=== PATIENT | female | born 1965 | race Caucasian/White ===

== ENCOUNTER 2021-03-28 12:00 | Inpatient (IN) | payer OTHER ==
[2021-03-28] MEDS ORDERED: MAGNESIUM CITRATE 300 ML BOTTLE PO PRN (13:23)
[2021-03-28] MEDS ORDERED: NICOTINE 10 MG CARTRIDGE (INHALER) IH PRN (13:23)
[2021-03-28] MEDS ORDERED: ONDANSETRON *ODT* 4 MG TABLET SL PRN (13:23)
[2021-03-28] MEDS ORDERED: MAGNESIUM HYDROX 2400MG/30ML ORAL SUSPENSION 30 ML CUP PO PRN (13:23)
[2021-03-28] MEDS ORDERED: MAG HYDROX/AL HYDROX/SIMETH 30 ML UNIT-DOSE CUP PO PRN (13:23)
[2021-03-28] MEDS ORDERED: MENTHOL/PHENOL 1 EACH UD MM PRN (13:23)
[2021-03-28] MEDS ORDERED: IBUPROFEN 400 MG TABLET (FP) PO PRN (13:23)
[2021-03-28] MEDS ORDERED: BISMUTH SUBSALICYLATE 262 MG/15 ML BTL PO PRN (13:23)
[2021-03-28] MEDS ORDERED: ACETAMINOPHEN 325 MG TABLET (FP) PO PRN ×2 (13:23)
[2021-03-28 14:07] VITALS: BMI 27.3
[2021-03-28] MEDS ORDERED: ALBUTEROL SO4 HFA INHALER IH PRN (15:53)
[2021-03-28 17:38] LABS: HEMATOCRIT 33.5 % (32.4-45.2); HEMOGLOBIN 10.9 GM/dL (10.7-15.3); MCHC 32.4 g/dl (32.0-36.0); MEAN PLT VOLUME 8.7 fl (7.5-11.1); PLATELET COUNT 346 10^3/uL (134-434); RBC 5.59 M/mm3 (3.60-5.2); RDW 15.8 % (11.6-15.6); WHITE BLOOD COUNT 8.2 K/mm3 (4.0-10.0)
[2021-03-28 17:40] LABS: MCH 19.5 pg (25.7-33.7)
[2021-03-28] MEDS: diazePAM 5 MG TABLET PO SCH ×2 (17:56→23:08)
[2021-03-28] MEDS: hydrOXYzine PAMOATE 25 MG CAPSULE (FP) PO SCH ×3 (17:56→23:10)
[2021-03-28 17:59] LABS: CHLORIDE 112 mmol/L (98-107); SODIUM 144 mmol/L (136-145)
[2021-03-28] MEDS: NICOTINE 14 MG/24 HOURS TOPICAL PATCH TD SCH (18:03)
[2021-03-28 18:04] LABS: ALBUMIN 3.4 g/dl (3.4-5.0)
[2021-03-28 18:05] LABS: ANION GAP 3 MMOL/L (8-16); BLOOD UREA NITROGEN 7.6 mg/dL (7-18); CALCIUM 8.1 mg/dL (8.5-10.1); CO2 29 mmol/L (21-32)
[2021-03-28 18:07] LABS: SGOT/AST 16 U/L (15-37); SGPT/ALT 17 U/L (13-61)
[2021-03-28 18:08] LABS: CREATININE 0.8 mg/dL (0.55-1.3)
[2021-03-28 18:09] LABS: BILIRUBIN,TOTAL 0.3 mg/dL (0.2-1); TOT PROT 6.5 g/dl (6.4-8.2)
[2021-03-28 18:10] LABS: ALK PHOS 101 U/L (45-117)
[2021-03-28] MEDS: PRENATAL VITAMINS W/ FOLIC ACID TABLET (FP) PO SCH (18:17)
[2021-03-28 18:48] LABS: GLUCOSE,RANDOM 42 mg/dL (74-106)
[2021-03-28] MEDS: BUDESONIDE/FORMETEROL FUMARATE 160/4.5 mcg INHALER IH SCH (23:08)
[2021-03-28] MEDS: MELATONIN 5 MG TABLETS PO SCH (23:08)
[2021-03-28] MEDS: THIAMINE HCL 100 MG TABLET (FP) PO SCH (23:09)
[2021-03-28] MEDS: METHOCARBAMOL 500 MG TABLET PO PRN (23:10)
[2021-03-29] MEDS: hydrOXYzine PAMOATE 25 MG CAPSULE (FP) PO SCH (06:16)
[2021-03-29] MEDS: diazePAM 5 MG TABLET PO SCH ×4 (06:17→22:50)
[2021-03-29] MEDS: PRENATAL VITAMINS W/ FOLIC ACID TABLET (FP) PO SCH (10:29)
[2021-03-29] MEDS: BUDESONIDE/FORMETEROL FUMARATE 160/4.5 mcg INHALER IH SCH ×2 (10:29→22:49)
[2021-03-29] MEDS: DULoxetine HCL 60 MG CAPSULE.DR PO SCH (11:20)
[2021-03-29] MEDS: NICOTINE 14 MG/24 HOURS TOPICAL PATCH TD SCH (11:21)
[2021-03-29] MEDS: METHOCARBAMOL 500 MG TABLET PO PRN (22:50)
[2021-03-29] MEDS: hydrOXYzine PAMOATE 25 MG CAPSULE (FP) PO PRN (22:50)
[2021-03-29] MEDS: THIAMINE HCL 100 MG TABLET (FP) PO SCH (22:50)
[2021-03-29] MEDS: MELATONIN 5 MG TABLETS PO SCH (22:59)
[2021-03-29] MEDS: traZODone HCL 50 MG TABLET (FP) PO SCH (23:03)
[2021-03-30] MEDS: diazePAM 5 MG TABLET PO SCH ×3 (06:48→22:25)
[2021-03-30] MEDS: PRENATAL VITAMINS W/ FOLIC ACID TABLET (FP) PO SCH (10:32)
[2021-03-30] MEDS: BUDESONIDE/FORMETEROL FUMARATE 160/4.5 mcg INHALER IH SCH ×2 (10:33→22:26)
[2021-03-30] MEDS: DULoxetine HCL 60 MG CAPSULE.DR PO SCH (10:33)
[2021-03-30] MEDS: diazePAM 5 MG TABLET PO PRN (10:34)
[2021-03-30] MEDS: NICOTINE 14 MG/24 HOURS TOPICAL PATCH TD SCH (10:42)
[2021-03-30] MEDS: BUPROPION HCL 200 MG PO SCH ×2 (16:21→16:22)
[2021-03-30] MEDS: PATIENT'S OWN MEDICATION (NON-FORMULARY) (Vortioxetine Hydrobromide [Trintellix] 20 MG Tab PO SCH ×2 (16:21→16:22)
[2021-03-30] MEDS: THIAMINE HCL 100 MG TABLET (FP) PO SCH (22:24)
[2021-03-30] MEDS: traZODone HCL 50 MG TABLET (FP) PO SCH (22:24)
[2021-03-30] MEDS: MELATONIN 5 MG TABLETS PO SCH (22:24)
[2021-03-31] MEDS: diazePAM 5 MG TABLET PO SCH ×2 (06:18→17:13)
[2021-03-31] MEDS: DULoxetine HCL 60 MG CAPSULE.DR PO SCH (10:33)
[2021-03-31] MEDS: PRENATAL VITAMINS W/ FOLIC ACID TABLET (FP) PO SCH (10:34)
[2021-03-31] MEDS: hydrOXYzine PAMOATE 25 MG CAPSULE (FP) PO PRN (10:34)
[2021-03-31] MEDS: diazePAM 5 MG TABLET PO PRN (10:34)
[2021-03-31] MEDS: NICOTINE 14 MG/24 HOURS TOPICAL PATCH TD SCH (10:59)
[2021-03-31] MEDS: BUDESONIDE/FORMETEROL FUMARATE 160/4.5 mcg INHALER IH SCH (11:00)
[2021-03-31 20:56] VITALS: BP 160/99; PULSE 88; TEMP 96.9
[2021-04-01] MEDS ORDERED: diazePAM 5 MG TABLET PO ONE (06:00)
== END 2021-03-31 20:54 | disposition left against medical advice (07) | DRG 894 ==
LOC: YASAS 12:00 → Y3N 13:57
PROVIDERS: ADMIT Allergy & Immunology; ATTEND Allergy & Immunology
PROC: HZ2ZZZZ Detoxification Services for Substance Abuse Treatment (ICD-10-PCS; principal; 2021-03-28)
DX: F10.230 Alcohol dependence with withdrawal, uncomplicated (principal); F11.20 Opioid dependence, uncomplicated; F14.20 Cocaine dependence, uncomplicated; F19.282 Other psychoactive substance dependence with psychoactive substance-induced sleep disorder; F17.210 Nicotine dependence, cigarettes, uncomplicated; F19.24 Other psychoactive substance dependence with psychoactive substance-induced mood disorder; F32.A Depression, unspecified; F32.9 Major depressive disorder, single episode, unspecified; J43.9 Emphysema, unspecified; Z91.51 Personal history of suicidal behavior
CPT/HCPCS: 36415; 80053; 82947; 82962; 85027; 86780; 93005; 93010; C9803; U0003; U0005

== ENCOUNTER 2021-08-12 12:54 | Inpatient (IN) | payer OTHER ==
[2021-08-12] MEDS ORDERED: MAGNESIUM HYDROX 2400MG/30ML ORAL SUSPENSION 30 ML CUP PO PRN (13:32)
[2021-08-12] MEDS ORDERED: MAGNESIUM CITRATE 300 ML BOTTLE PO PRN (13:32)
[2021-08-12] MEDS ORDERED: LORazepam 1 MG TABLET PO PRN (13:32)
[2021-08-12] MEDS ORDERED: IBUPROFEN 400 MG TABLET (FP) PO PRN (13:32)
[2021-08-12] MEDS ORDERED: MENTHOL/PHENOL 1 EACH UD MM PRN (13:32)
[2021-08-12] MEDS ORDERED: ONDANSETRON *ODT* 4 MG TABLET SL PRN (13:32)
[2021-08-12] MEDS ORDERED: ACETAMINOPHEN 325 MG TABLET (FP) PO PRN ×2 (13:32)
[2021-08-12] MEDS ORDERED: BISMUTH SUBSALICYLATE 262 MG/15 ML BTL PO PRN (13:32)
[2021-08-12] MEDS ORDERED: LOPERAMIDE HCL 2 MG CAPSULE PO PRN (13:32)
[2021-08-12] MEDS ORDERED: NICOTINE 10 MG CARTRIDGE (INHALER) IH PRN (13:32)
[2021-08-12] MEDS ORDERED: MAG HYDROX/AL HYDROX/SIMETH 30 ML UNIT-DOSE CUP PO PRN (13:32)
[2021-08-12] MEDS ORDERED: ALBUTEROL SO4 HFA INHALER IH PRN (13:41)
[2021-08-12 15:14] VITALS: BMI 22.8
[2021-08-12] MEDS ORDERED: LORazepam 1 MG TABLET ONE (15:58)
[2021-08-12] MEDS: hydrOXYzine PAMOATE 25 MG CAPSULE (FP) PO SCH ×3 (16:13→22:28)
[2021-08-12] MEDS: PRENATAL VITAMINS W/ FOLIC ACID TABLET (FP) PO SCH (16:42)
[2021-08-12] MEDS: METHOCARBAMOL 500 MG TABLET PO PRN ×2 (16:42→22:27)
[2021-08-12] MEDS: NICOTINE 21 MG/24 HOURS TOPICAL PATCH TD SCH (16:43)
[2021-08-12 17:57] LABS: HEMATOCRIT 35.6 % (32.4-45.2); HEMOGLOBIN 11.5 GM/dL (10.7-15.3); MCHC 32.3 g/dl (32.0-36.0); MEAN CELL VOLUME 61.3 fl (80-96); MEAN PLT VOLUME 7.8 fl (7.5-11.1); PLATELET COUNT 371 10^3/uL (134-434); RBC 5.81 M/mm3 (3.60-5.2); RDW 16.4 % (11.6-15.6); WHITE BLOOD COUNT 8.4 K/mm3 (4.0-10.0)
[2021-08-12 18:01] LABS: MCH 19.8 pg (25.7-33.7)
[2021-08-12 18:09] LABS: ALBUMIN 3.6 g/dl (3.4-5.0); CALCIUM 8.9 mg/dL (8.5-10.1)
[2021-08-12 18:13] LABS: CREATININE 0.6 mg/dL (0.55-1.3)
[2021-08-12 18:14] LABS: BILIRUBIN,TOTAL 0.8 mg/dL (0.2-1)
[2021-08-12 18:15] LABS: TOT PROT 6.7 g/dl (6.4-8.2)
[2021-08-12] MEDS: LORazepam 2 MG TABLET PO SCH ×2 (18:22→22:27)
[2021-08-12] MEDS: MELATONIN 5 MG TABLETS PO SCH (22:27)
[2021-08-12] MEDS: THIAMINE HCL 100 MG TABLET (FP) PO SCH (22:27)
[2021-08-13] MEDS: hydrOXYzine PAMOATE 25 MG CAPSULE (FP) PO SCH ×5 (05:40→22:54)
[2021-08-13] MEDS: LORazepam 2 MG TABLET PO SCH ×4 (05:40→22:55)
[2021-08-13] MEDS: PRENATAL VITAMINS W/ FOLIC ACID TABLET (FP) PO SCH (10:34)
[2021-08-13] MEDS: METHOCARBAMOL 500 MG TABLET PO PRN ×2 (10:34→18:27)
[2021-08-13] MEDS: NICOTINE 21 MG/24 HOURS TOPICAL PATCH TD SCH (10:35)
[2021-08-13] MEDS: MELATONIN 5 MG TABLETS PO SCH (22:54)
[2021-08-13] MEDS: THIAMINE HCL 100 MG TABLET (FP) PO SCH (22:54)
[2021-08-14] MEDS: hydrOXYzine PAMOATE 25 MG CAPSULE (FP) PO SCH ×5 (05:42→22:07)
[2021-08-14] MEDS: LORazepam 1 MG TABLET PO SCH ×4 (05:42→22:07)
[2021-08-14] MEDS: PRENATAL VITAMINS W/ FOLIC ACID TABLET (FP) PO SCH (10:55)
[2021-08-14] MEDS: METHOCARBAMOL 500 MG TABLET PO PRN (10:56)
[2021-08-14] MEDS: NICOTINE 21 MG/24 HOURS TOPICAL PATCH TD SCH (10:57)
[2021-08-14 14:07] LABS: SARS-CoV-2 NAA Not Detected (Not Detected)
[2021-08-14] MEDS: THIAMINE HCL 100 MG TABLET (FP) PO SCH (22:07)
[2021-08-14] MEDS: MELATONIN 5 MG TABLETS PO SCH (22:08)
[2021-08-15] MEDS ORDERED: LORazepam 0.5 MG TABLET PO PRN
[2021-08-15] MEDS: hydrOXYzine PAMOATE 25 MG CAPSULE (FP) PO SCH ×5 (04:59→22:22)
[2021-08-15] MEDS: LORazepam 0.5 MG TABLET PO SCH ×4 (05:00→22:22)
[2021-08-15] MEDS: PRENATAL VITAMINS W/ FOLIC ACID TABLET (FP) PO SCH (10:30)
[2021-08-15] MEDS: METHOCARBAMOL 500 MG TABLET PO PRN (10:30)
[2021-08-15] MEDS: NICOTINE 21 MG/24 HOURS TOPICAL PATCH TD SCH (10:31)
[2021-08-15] MEDS: DULoxetine HCL 60 MG CAPSULE.DR PO SCH (12:24)
[2021-08-15] MEDS: BUPROPION HCL 200 MG PO SCH (14:58)
[2021-08-15] MEDS: PATIENT'S OWN MEDICATION (NON-FORMULARY) (Vortioxetine Hydrobromide [Trintellix] 20 MG Tab PO SCH (14:59)
[2021-08-15] MEDS ORDERED: PATIENT'S OWN MEDICATION (NON-FORMULARY) (Trazodone Hcl [Trazodone Hcl] 150 MG Tablet) PO SCH (22:00)
[2021-08-15] MEDS: THIAMINE HCL 100 MG TABLET (FP) PO SCH (22:22)
[2021-08-16] MEDS ORDERED: LORazepam 0.5 MG TABLET PO ONE (05:00)
[2021-08-16] MEDS: hydrOXYzine PAMOATE 25 MG CAPSULE (FP) PO SCH ×2 (06:15→10:30)
[2021-08-16] MEDS: PRENATAL VITAMINS W/ FOLIC ACID TABLET (FP) PO SCH (10:29)
[2021-08-16] MEDS: PATIENT'S OWN MEDICATION (NON-FORMULARY) (Vortioxetine Hydrobromide [Trintellix] 20 MG Tab PO SCH (10:29)
[2021-08-16] MEDS: DULoxetine HCL 60 MG CAPSULE.DR PO SCH (10:30)
[2021-08-16] MEDS: METHOCARBAMOL 500 MG TABLET PO PRN (10:30)
[2021-08-16] MEDS: BUPROPION HCL 200 MG PO SCH (10:31)
[2021-08-16] MEDS: NICOTINE 21 MG/24 HOURS TOPICAL PATCH TD SCH ×2 (10:32→10:34)
[2021-08-16 12:08] VITALS: BP 108/67; PULSE 85; TEMP 98.2
== END 2021-08-16 12:32 | disposition other institution (70) | DRG 897 ==
LOC: YASAS 12:54 → Y6N 15:36
PROVIDERS: ADMIT Allergy & Immunology; ATTEND Allergy & Immunology
PROC: HZ2ZZZZ Detoxification Services for Substance Abuse Treatment (ICD-10-PCS; principal; 2021-08-12)
DX: F10.230 Alcohol dependence with withdrawal, uncomplicated (principal); F11.20 Opioid dependence, uncomplicated; F14.20 Cocaine dependence, uncomplicated; F19.282 Other psychoactive substance dependence with psychoactive substance-induced sleep disorder; F33.1 Major depressive disorder, recurrent, moderate; F17.210 Nicotine dependence, cigarettes, uncomplicated; F19.24 Other psychoactive substance dependence with psychoactive substance-induced mood disorder; F32.A Depression, unspecified; I10 Essential (primary) hypertension; J43.9 Emphysema, unspecified; R01.1 Cardiac murmur, unspecified
CPT/HCPCS: 36415; 80053; 81025; 82962; 85027; 86780; 87811; C9803; U0003; U0005

== ENCOUNTER 2021-08-16 12:41 | Inpatient (IN) | payer OTHER ==
[2021-08-16] MEDS ORDERED: P-EPHED 60MG/TRIPROLIDI 2.5MG TABLET PO PRN (14:46)
[2021-08-16] MEDS ORDERED: LOPERAMIDE HCL 2 MG CAPSULE PO PRN (14:46)
[2021-08-16] MEDS ORDERED: NICOTINE 10 MG CARTRIDGE (INHALER) IH PRN (14:46)
[2021-08-16] MEDS ORDERED: MAGNESIUM HYDROX 2400MG/30ML ORAL SUSPENSION 30 ML CUP PO PRN (14:46)
[2021-08-16] MEDS ORDERED: guaiFENesin 200 MG/10 ML 10 ML UNIT-DOSE CUPS PO PRN (14:46)
[2021-08-16] MEDS ORDERED: IBUPROFEN 400 MG TABLET (FP) PO PRN (14:46)
[2021-08-16] MEDS ORDERED: MAG HYDROX/AL HYDROX/SIMETH 30 ML UNIT-DOSE CUP PO PRN (14:46)
[2021-08-16] MEDS ORDERED: ACETAMINOPHEN 325 MG TABLET (FP) PO PRN (14:46)
[2021-08-16] MEDS ORDERED: MAGNESIUM CITRATE 300 ML BOTTLE PO PRN (14:46)
[2021-08-16] MEDS ORDERED: MENTHOL/PHENOL 1 EACH UD MM PRN (14:46)
[2021-08-16] MEDS: hydrOXYzine PAMOATE 25 MG CAPSULE (FP) PO PRN ×2 (17:14→21:36)
[2021-08-16] MEDS: MELATONIN 5 MG TABLETS PO SCH (21:34)
[2021-08-16] MEDS: TRAZODONE HCL 150 MG PO SCH (21:34)
[2021-08-16] MEDS: THIAMINE HCL 100 MG TABLET (FP) PO SCH (21:34)
[2021-08-16] MEDS ORDERED: traZODone HCL 50 MG TABLET (FP) PO SCH (22:00)
[2021-08-17] MEDS ORDERED: DULoxetine HCL 30 MG CAPSULE.DR PO ONE (08:41)
[2021-08-17] MEDS: PATIENT'S OWN MEDICATION (NON-FORMULARY) (Vortioxetine Hydrobromide [Trintellix] 20 MG Tab PO SCH (10:15)
[2021-08-17] MEDS: BUPROPION HCL 200 MG PO SCH (10:16)
[2021-08-17] MEDS: DULoxetine HCL 60 MG CAPSULE.DR PO SCH (10:16)
[2021-08-17] MEDS: PRENATAL VITAMINS W/ FOLIC ACID TABLET (FP) PO SCH (10:16)
[2021-08-17] MEDS: NICOTINE 7 MG/24 HOURS TOPICAL PATCH TD SCH (10:17)
[2021-08-17] MEDS: THIAMINE HCL 100 MG TABLET (FP) PO SCH (21:39)
[2021-08-17] MEDS: TRAZODONE HCL 150 MG PO SCH (21:39)
[2021-08-17] MEDS: MELATONIN 5 MG TABLETS PO SCH (21:39)
[2021-08-18] MEDS: NICOTINE 7 MG/24 HOURS TOPICAL PATCH TD SCH (10:08)
[2021-08-18] MEDS: PRENATAL VITAMINS W/ FOLIC ACID TABLET (FP) PO SCH (10:08)
[2021-08-18] MEDS: BUPROPION HCL 200 MG PO SCH (10:08)
[2021-08-18] MEDS: PATIENT'S OWN MEDICATION (NON-FORMULARY) (Vortioxetine Hydrobromide [Trintellix] 20 MG Tab PO SCH (10:08)
[2021-08-18] MEDS: DULoxetine HCL 60 MG CAPSULE.DR PO SCH (10:09)
[2021-08-18] MEDS: hydrOXYzine PAMOATE 25 MG CAPSULE (FP) PO PRN ×2 (10:10→21:40)
[2021-08-18] MEDS: TRAZODONE HCL 150 MG PO SCH (21:40)
[2021-08-18] MEDS: THIAMINE HCL 100 MG TABLET (FP) PO SCH (21:40)
[2021-08-18] MEDS: MELATONIN 5 MG TABLETS PO SCH (21:40)
[2021-08-19] MEDS: BUPROPION HCL 200 MG PO SCH (10:26)
[2021-08-19] MEDS: PRENATAL VITAMINS W/ FOLIC ACID TABLET (FP) PO SCH (10:26)
[2021-08-19] MEDS: DULoxetine HCL 60 MG CAPSULE.DR PO SCH (10:27)
[2021-08-19] MEDS: PATIENT'S OWN MEDICATION (NON-FORMULARY) (Vortioxetine Hydrobromide [Trintellix] 20 MG Tab PO SCH (10:27)
[2021-08-19] MEDS: hydrOXYzine PAMOATE 25 MG CAPSULE (FP) PO PRN (10:28)
[2021-08-19] MEDS: NICOTINE 7 MG/24 HOURS TOPICAL PATCH TD SCH (10:28)
[2021-08-19] MEDS: MELATONIN 5 MG TABLETS PO SCH (21:45)
[2021-08-19] MEDS: THIAMINE HCL 100 MG TABLET (FP) PO SCH (21:45)
[2021-08-19] MEDS: TRAZODONE HCL 150 MG PO SCH (21:46)
[2021-08-20] MEDS ORDERED: DULoxetine HCL 30 MG CAPSULE.DR PO ONE (08:06)
[2021-08-20] MEDS: PRENATAL VITAMINS W/ FOLIC ACID TABLET (FP) PO SCH (10:18)
[2021-08-20] MEDS: BUPROPION HCL 200 MG PO SCH (10:19)
[2021-08-20] MEDS: DULoxetine HCL 60 MG CAPSULE.DR PO SCH (10:19)
[2021-08-20] MEDS: PATIENT'S OWN MEDICATION (NON-FORMULARY) (Vortioxetine Hydrobromide [Trintellix] 20 MG Tab PO SCH (10:20)
[2021-08-20] MEDS: NICOTINE 7 MG/24 HOURS TOPICAL PATCH TD SCH (10:20)
[2021-08-20] MEDS: hydrOXYzine PAMOATE 25 MG CAPSULE (FP) PO PRN ×2 (10:21→21:51)
[2021-08-20] MEDS: MELATONIN 5 MG TABLETS PO SCH (21:50)
[2021-08-20] MEDS: THIAMINE HCL 100 MG TABLET (FP) PO SCH (21:50)
[2021-08-20] MEDS: TRAZODONE HCL 150 MG PO SCH (21:50)
[2021-08-21 08:07] LABS: SARS-CoV-2 NAA Not Detected (Not Detected)
[2021-08-21] MEDS: PATIENT'S OWN MEDICATION (NON-FORMULARY) (Vortioxetine Hydrobromide [Trintellix] 20 MG Tab PO SCH (10:23)
[2021-08-21] MEDS: PRENATAL VITAMINS W/ FOLIC ACID TABLET (FP) PO SCH (10:23)
[2021-08-21] MEDS: BUPROPION HCL 200 MG PO SCH (10:23)
[2021-08-21] MEDS: hydrOXYzine PAMOATE 25 MG CAPSULE (FP) PO PRN (10:24)
[2021-08-21] MEDS: DULoxetine HCL 60 MG CAPSULE.DR PO SCH (10:24)
[2021-08-21] MEDS: NICOTINE 7 MG/24 HOURS TOPICAL PATCH TD SCH (10:25)
[2021-08-21] MEDS: THIAMINE HCL 100 MG TABLET (FP) PO SCH (21:32)
[2021-08-21] MEDS: TRAZODONE HCL 150 MG PO SCH (21:32)
[2021-08-21] MEDS: MELATONIN 5 MG TABLETS PO SCH (21:32)
[2021-08-22] MEDS ORDERED: DULoxetine HCL 30 MG CAPSULE.DR PO ONE (08:40)
[2021-08-22] MEDS: DULoxetine HCL 60 MG CAPSULE.DR PO SCH (10:13)
[2021-08-22] MEDS: PRENATAL VITAMINS W/ FOLIC ACID TABLET (FP) PO SCH (10:13)
[2021-08-22] MEDS: BUPROPION HCL 200 MG PO SCH (10:13)
[2021-08-22] MEDS: NICOTINE 7 MG/24 HOURS TOPICAL PATCH TD SCH (10:14)
[2021-08-22] MEDS: PATIENT'S OWN MEDICATION (NON-FORMULARY) (Vortioxetine Hydrobromide [Trintellix] 20 MG Tab PO SCH (10:14)
[2021-08-22] MEDS: TRAZODONE HCL 150 MG PO SCH (21:33)
[2021-08-22] MEDS: hydrOXYzine PAMOATE 25 MG CAPSULE (FP) PO PRN (21:34)
[2021-08-22] MEDS: MELATONIN 5 MG TABLETS PO SCH (21:34)
[2021-08-22] MEDS: THIAMINE HCL 100 MG TABLET (FP) PO SCH (21:34)
[2021-08-23] MEDS: PRENATAL VITAMINS W/ FOLIC ACID TABLET (FP) PO SCH (10:33)
[2021-08-23] MEDS: PATIENT'S OWN MEDICATION (NON-FORMULARY) (Vortioxetine Hydrobromide [Trintellix] 20 MG Tab PO SCH (10:33)
[2021-08-23] MEDS: DULoxetine HCL 60 MG CAPSULE.DR PO SCH (10:34)
[2021-08-23] MEDS: hydrOXYzine PAMOATE 25 MG CAPSULE (FP) PO PRN ×2 (10:34→21:39)
[2021-08-23] MEDS: BUPROPION HCL 200 MG PO SCH (10:34)
[2021-08-23] MEDS: NICOTINE 7 MG/24 HOURS TOPICAL PATCH TD SCH (10:35)
[2021-08-23] MEDS: THIAMINE HCL 100 MG TABLET (FP) PO SCH (21:39)
[2021-08-23] MEDS: TRAZODONE HCL 150 MG PO SCH (21:39)
[2021-08-23] MEDS: MELATONIN 5 MG TABLETS PO SCH (21:40)
[2021-08-24] MEDS ORDERED: DULoxetine HCL 30 MG CAPSULE.DR PO ONE (09:11)
[2021-08-24] MEDS: BUPROPION HCL 200 MG PO SCH (10:16)
[2021-08-24] MEDS: DULoxetine HCL 60 MG CAPSULE.DR PO SCH (10:17)
[2021-08-24] MEDS: hydrOXYzine PAMOATE 25 MG CAPSULE (FP) PO PRN ×2 (10:17→21:31)
[2021-08-24] MEDS: PATIENT'S OWN MEDICATION (NON-FORMULARY) (Vortioxetine Hydrobromide [Trintellix] 20 MG Tab PO SCH (10:17)
[2021-08-24] MEDS: NICOTINE 7 MG/24 HOURS TOPICAL PATCH TD SCH (10:18)
[2021-08-24] MEDS: PRENATAL VITAMINS W/ FOLIC ACID TABLET (FP) PO SCH (10:18)
[2021-08-24] MEDS: TRAZODONE HCL 150 MG PO SCH (21:31)
[2021-08-24] MEDS: MELATONIN 5 MG TABLETS PO SCH (21:31)
[2021-08-24] MEDS: THIAMINE HCL 100 MG TABLET (FP) PO SCH (21:31)
[2021-08-25] MEDS ORDERED: DULoxetine HCL 30 MG CAPSULE.DR PO ONE (09:06)
[2021-08-25] MEDS: PRENATAL VITAMINS W/ FOLIC ACID TABLET (FP) PO SCH (10:21)
[2021-08-25] MEDS: PATIENT'S OWN MEDICATION (NON-FORMULARY) (Vortioxetine Hydrobromide [Trintellix] 20 MG Tab PO SCH (10:22)
[2021-08-25] MEDS: hydrOXYzine PAMOATE 25 MG CAPSULE (FP) PO PRN (10:22)
[2021-08-25] MEDS: DULoxetine HCL 60 MG CAPSULE.DR PO SCH (10:22)
[2021-08-25] MEDS: BUPROPION HCL 200 MG PO SCH (10:23)
[2021-08-25] MEDS: NICOTINE 7 MG/24 HOURS TOPICAL PATCH TD SCH (10:30)
[2021-08-25] MEDS: THIAMINE HCL 100 MG TABLET (FP) PO SCH (21:27)
[2021-08-25] MEDS: MELATONIN 5 MG TABLETS PO SCH (21:27)
[2021-08-25] MEDS: TRAZODONE HCL 150 MG PO SCH (21:27)
[2021-08-26] MEDS: DULoxetine HCL 60 MG CAPSULE.DR PO SCH (10:28)
[2021-08-26] MEDS: PRENATAL VITAMINS W/ FOLIC ACID TABLET (FP) PO SCH (10:28)
[2021-08-26] MEDS: BUPROPION HCL 200 MG PO SCH (10:28)
[2021-08-26] MEDS: PATIENT'S OWN MEDICATION (NON-FORMULARY) (Vortioxetine Hydrobromide [Trintellix] 20 MG Tab PO SCH (10:28)
[2021-08-26] MEDS: NICOTINE 7 MG/24 HOURS TOPICAL PATCH TD SCH (10:28)
[2021-08-26] MEDS: hydrOXYzine PAMOATE 25 MG CAPSULE (FP) PO PRN ×2 (10:29→21:35)
[2021-08-26] MEDS: MELATONIN 5 MG TABLETS PO SCH (21:35)
[2021-08-26] MEDS: TRAZODONE HCL 150 MG PO SCH (21:35)
[2021-08-26] MEDS: THIAMINE HCL 100 MG TABLET (FP) PO SCH (21:35)
[2021-08-27] MEDS: PRENATAL VITAMINS W/ FOLIC ACID TABLET (FP) PO SCH (10:25)
[2021-08-27] MEDS: hydrOXYzine PAMOATE 25 MG CAPSULE (FP) PO PRN ×2 (10:26→21:41)
[2021-08-27] MEDS: DULoxetine HCL 60 MG CAPSULE.DR PO SCH (10:26)
[2021-08-27] MEDS: BUPROPION HCL 200 MG PO SCH (10:26)
[2021-08-27] MEDS: PATIENT'S OWN MEDICATION (NON-FORMULARY) (Vortioxetine Hydrobromide [Trintellix] 20 MG Tab PO SCH (10:26)
[2021-08-27] MEDS: NICOTINE 7 MG/24 HOURS TOPICAL PATCH TD SCH (10:27)
[2021-08-27] MEDS: THIAMINE HCL 100 MG TABLET (FP) PO SCH (21:41)
[2021-08-27] MEDS: MELATONIN 5 MG TABLETS PO SCH (21:42)
[2021-08-27] MEDS: TRAZODONE HCL 150 MG PO SCH (21:42)
[2021-08-28] MEDS: PATIENT'S OWN MEDICATION (NON-FORMULARY) (Vortioxetine Hydrobromide [Trintellix] 20 MG Tab PO SCH (10:31)
[2021-08-28] MEDS: DULoxetine HCL 60 MG CAPSULE.DR PO SCH (10:31)
[2021-08-28] MEDS: PRENATAL VITAMINS W/ FOLIC ACID TABLET (FP) PO SCH (10:31)
[2021-08-28] MEDS: NICOTINE 7 MG/24 HOURS TOPICAL PATCH TD SCH (10:32)
[2021-08-28] MEDS: BUPROPION HCL 200 MG PO SCH (10:32)
[2021-08-28] MEDS: ALBUTEROL SO4 HFA INHALER IH PRN ×2 (10:34→21:50)
[2021-08-28] MEDS: THIAMINE HCL 100 MG TABLET (FP) PO SCH (21:51)
[2021-08-28] MEDS: TRAZODONE HCL 150 MG PO SCH (21:51)
[2021-08-28] MEDS: hydrOXYzine PAMOATE 25 MG CAPSULE (FP) PO PRN (21:51)
[2021-08-28] MEDS: MELATONIN 5 MG TABLETS PO SCH (21:51)
[2021-08-29 07:19] VITALS: PULSE 63
[2021-08-29] MEDS ORDERED: DULoxetine HCL 30 MG CAPSULE.DR PO ONE (09:12)
[2021-08-29] MEDS: BUPROPION HCL 200 MG PO SCH (10:36)
[2021-08-29] MEDS: DULoxetine HCL 60 MG CAPSULE.DR PO SCH (10:36)
[2021-08-29] MEDS: NICOTINE 7 MG/24 HOURS TOPICAL PATCH TD SCH (10:37)
[2021-08-29] MEDS: PATIENT'S OWN MEDICATION (NON-FORMULARY) (Vortioxetine Hydrobromide [Trintellix] 20 MG Tab PO SCH (10:37)
[2021-08-29] MEDS: hydrOXYzine PAMOATE 25 MG CAPSULE (FP) PO PRN ×2 (10:37→21:35)
[2021-08-29] MEDS: PRENATAL VITAMINS W/ FOLIC ACID TABLET (FP) PO SCH (10:37)
[2021-08-29] MEDS: ALBUTEROL SO4 HFA INHALER IH PRN (10:38)
[2021-08-29] MEDS: THIAMINE HCL 100 MG TABLET (FP) PO SCH (21:35)
[2021-08-29] MEDS: TRAZODONE HCL 150 MG PO SCH (21:35)
[2021-08-29] MEDS: MELATONIN 5 MG TABLETS PO SCH (21:35)
[2021-08-30 07:54] VITALS: BP 126/68; TEMP 97.3
[2021-08-30] MEDS ORDERED: DULoxetine HCL 30 MG CAPSULE.DR PO ONE (08:26)
[2021-08-30] MEDS: PATIENT'S OWN MEDICATION (NON-FORMULARY) (Vortioxetine Hydrobromide [Trintellix] 20 MG Tab PO SCH (09:04)
[2021-08-30] MEDS: BUPROPION HCL 200 MG PO SCH (09:05)
[2021-08-30] MEDS: PRENATAL VITAMINS W/ FOLIC ACID TABLET (FP) PO SCH (09:06)
[2021-08-30] MEDS: DULoxetine HCL 60 MG CAPSULE.DR PO SCH (09:06)
[2021-08-30] MEDS: hydrOXYzine PAMOATE 25 MG CAPSULE (FP) PO PRN (09:07)
[2021-08-30] MEDS: NICOTINE 7 MG/24 HOURS TOPICAL PATCH TD SCH (09:07)
== END 2021-08-30 09:25 | disposition home or self-care (01) | DRG 895 ==
LOC: YASAS 12:41 → Y5N 12:43
PROVIDERS: ADMIT Allergy & Immunology; ATTEND Allergy & Immunology
PROC: HZ42ZZZ Group Counseling for Substance Abuse Treatment, Cognitive-Behavioral (ICD-10-PCS; principal; 2021-08-21)
DX: F10.20 Alcohol dependence, uncomplicated (principal); F14.20 Cocaine dependence, uncomplicated; F33.1 Major depressive disorder, recurrent, moderate; F17.210 Nicotine dependence, cigarettes, uncomplicated; I10 Essential (primary) hypertension; J43.9 Emphysema, unspecified; Z98.84 Bariatric surgery status
CPT/HCPCS: C9803-CS; U0003; U0005

== ENCOUNTER 2022-01-12 08:02 | Inpatient (IN) | payer OTHER ==
[2022-01-11 22:48] VITALS: BMI 28.3
[~2022-01-12 08:02] MED LIST: ACETAMINOPHEN 325 MG TABLET (FP) PO PRN; ALBUTEROL SO4 2.5/IPRATROPIUM 0.5 INH SOL 3 ML VIAL.NEB. NEB PRN; ALBUTEROL SO4 HFA INHALER IH PRN; BENZOCAINE/MENTHOL (CHLORASEPTIC ) LOZENGE MM PRN; BISMUTH SUBSALICYLATE 524 MG/30 ML PO PRN; DICYCLOMINE HCL 10 MG CAPSULE PO PRN; IBUPROFEN 400 MG TABLET (FP) PO PRN; IBUPROFEN 600 MG TABLET (FP) PO PRN; LOPERAMIDE HCL 2 MG CAPSULE PO PRN; MAG HYDROX/AL HYDROX/SIMETH 30 ML UNIT-DOSE CUP PO PRN; MAGNESIUM CITRATE 300 ML BOTTLE PO PRN; MAGNESIUM HYDROX 2400MG/30ML ORAL SUSPENSION 30 ML CUP PO PRN; METHOCARBAMOL 500 MG TABLET PO PRN; P-EPHED 60MG/TRIPROLIDI 2.5MG TABLET PO PRN; guaiFENesin 200 MG/10 ML 10 ML UNIT-DOSE CUPS PO PRN
[2022-01-12 10:50] LABS: HEMATOCRIT 37.7 % (32.4-45.2); HEMOGLOBIN 12.1 GM/dL (10.7-15.3); MCHC 32.1 g/dl (32.0-36.0); MEAN CELL VOLUME 59.5 fl (80-96); MEAN PLT VOLUME 8.4 fl (7.5-11.1); PLATELET COUNT 417 10^3/uL (134-434); RBC 6.33 M/mm3 (3.60-5.2); WHITE BLOOD COUNT 8.9 K/mm3 (4.0-10.0)
[2022-01-12 10:57] LABS: MCH 19.1 pg (25.7-33.7)
[2022-01-12 11:27] LABS: CALCIUM 8.5 mg/dL (8.5-10.1)
[2022-01-12 11:28] LABS: ALBUMIN 3.5 g/dl (3.4-5.0); BLOOD UREA NITROGEN 12.1 mg/dL (7-18)
[2022-01-12 11:31] LABS: CREATININE 0.8 mg/dL (0.55-1.3)
[2022-01-12 11:33] LABS: BILIRUBIN,TOTAL 0.4 mg/dL (0.2-1); TOT PROT 6.9 g/dl (6.4-8.2)
[2022-01-12] MEDS: diazePAM 5 MG TABLET PO SCH ×4 (13:47→22:23)
[2022-01-12] MEDS: PRENATAL VITAMINS W/ FOLIC ACID TABLET (FP) PO SCH (13:52)
[2022-01-12] MEDS: MELATONIN 5 MG TABLETS PO PRN (22:22)
[2022-01-12] MEDS: hydrOXYzine PAMOATE 25 MG CAPSULE (FP) PO PRN (22:22)
[2022-01-12] MEDS: THIAMINE HCL 100 MG TABLET (FP) PO SCH (22:22)
[2022-01-13] MEDS: diazePAM 5 MG TABLET PO SCH ×3 (06:01→22:08)
[2022-01-13] MEDS: PRENATAL VITAMINS W/ FOLIC ACID TABLET (FP) PO SCH (10:22)
[2022-01-13] MEDS: diazePAM 5 MG TABLET PO PRN (10:22)
[2022-01-13] MEDS: THIAMINE HCL 100 MG TABLET (FP) PO SCH (22:08)
[2022-01-13] MEDS: MELATONIN 5 MG TABLETS PO PRN (22:08)
[2022-01-13] MEDS: hydrOXYzine PAMOATE 25 MG CAPSULE (FP) PO PRN (22:09)
[2022-01-13] MEDS: ACETAMINOPHEN 325 MG TABLET (FP) PO PRN (22:09)
[2022-01-14] MEDS: diazePAM 5 MG TABLET PO SCH ×2 (05:47→17:51)
[2022-01-14] MEDS: hydrOXYzine PAMOATE 25 MG CAPSULE (FP) PO PRN ×3 (05:49→22:21)
[2022-01-14] MEDS ORDERED: cloNIDine HCL 0.1 MG TABLET PO ONE (10:00)
[2022-01-14] MEDS ORDERED: DULoxetine HCL 30 MG CAPSULE.DR PO SCH (10:00)
[2022-01-14] MEDS: PRENATAL VITAMINS W/ FOLIC ACID TABLET (FP) PO SCH (10:31)
[2022-01-14] MEDS: diazePAM 5 MG TABLET PO PRN ×2 (10:32→19:50)
[2022-01-14] MEDS ORDERED: TRIMETHOBENZAMIDE HCL 200MG/2ML INJ IM ONE (15:16)
[2022-01-14] MEDS: ONDANSETRON *ODT* 4 MG TABLET SL PRN (15:16)
[2022-01-14] MEDS: ACETAMINOPHEN 325 MG TABLET (FP) PO PRN (19:51)
[2022-01-14] MEDS: THIAMINE HCL 100 MG TABLET (FP) PO SCH (22:21)
[2022-01-14] MEDS: MELATONIN 5 MG TABLETS PO PRN (22:21)
[2022-01-15] MEDS ORDERED: diazePAM 5 MG TABLET PO ONE (06:00)
[2022-01-15] MEDS: ONDANSETRON *ODT* 4 MG TABLET SL PRN (06:58)
[2022-01-15] MEDS: PRENATAL VITAMINS W/ FOLIC ACID TABLET (FP) PO SCH (10:28)
[2022-01-15] MEDS: DULoxetine HCL 60 MG CAPSULE.DR PO SCH (10:29)
[2022-01-15] MEDS: hydrOXYzine PAMOATE 25 MG CAPSULE (FP) PO PRN (15:12)
[2022-01-15 18:07] VITALS: RESP 18
[2022-01-15] MEDS ORDERED: traZODone HCL 100 MG TABLET (FP) PO SCH (22:00)
[2022-01-15] MEDS: THIAMINE HCL 100 MG TABLET (FP) PO SCH (22:10)
[2022-01-16 09:37] VITALS: BP 112/68; PULSE 76; TEMP 96.4
[2022-01-16] MEDS: PRENATAL VITAMINS W/ FOLIC ACID TABLET (FP) PO SCH (10:30)
[2022-01-16] MEDS: DULoxetine HCL 60 MG CAPSULE.DR PO SCH (10:31)
[2022-01-16] MEDS: hydrOXYzine PAMOATE 25 MG CAPSULE (FP) PO PRN (10:31)
== END 2022-01-16 12:41 | disposition other institution (70) | DRG 897 ==
LOC: YASAS 08:02 → Y3N 13:16
PROVIDERS: ADMIT Allergy & Immunology; ATTEND Psychiatry & Neurology Pain Medicine
PROC: HZ2ZZZZ Detoxification Services for Substance Abuse Treatment (ICD-10-PCS; principal; 2022-01-12)
DX: F10.230 Alcohol dependence with withdrawal, uncomplicated (principal); F14.20 Cocaine dependence, uncomplicated; F17.210 Nicotine dependence, cigarettes, uncomplicated; F19.24 Other psychoactive substance dependence with psychoactive substance-induced mood disorder; F32.A Depression, unspecified; I10 Essential (primary) hypertension; J43.9 Emphysema, unspecified; G47.00 Insomnia, unspecified; Y04.0XXA Assault by unarmed brawl or fight, initial encounter; Y92.239 Unspecified place in hospital as the place of occurrence of the external cause
CPT/HCPCS: 36415; 71045-TC-FY; 80053; 85027; 86780; C9803-CS; J0735; Q0162; U0003; U0005

== ENCOUNTER 2022-01-16 13:06 | Inpatient (IN) | payer OTHER ==
[2022-01-16] MEDS ORDERED: MAG HYDROX/AL HYDROX/SIMETH 30 ML UNIT-DOSE CUP PO PRN (15:18)
[2022-01-16] MEDS ORDERED: P-EPHED 60MG/TRIPROLIDI 2.5MG TABLET PO PRN (15:18)
[2022-01-16] MEDS ORDERED: BENZOCAINE/MENTHOL (CHLORASEPTIC ) LOZENGE MM PRN (15:18)
[2022-01-16] MEDS ORDERED: IBUPROFEN 400 MG TABLET (FP) PO PRN (15:18)
[2022-01-16] MEDS ORDERED: MAGNESIUM HYDROX 2400MG/30ML ORAL SUSPENSION 30 ML CUP PO PRN (15:18)
[2022-01-16] MEDS ORDERED: MAGNESIUM CITRATE 300 ML BOTTLE PO PRN (15:18)
[2022-01-16] MEDS ORDERED: NICOTINE 10 MG CARTRIDGE (INHALER) IH PRN (15:18)
[2022-01-16] MEDS ORDERED: LOPERAMIDE HCL 2 MG CAPSULE PO PRN (15:18)
[2022-01-16] MEDS ORDERED: ACETAMINOPHEN 325 MG TABLET (FP) PO PRN (15:18)
[2022-01-16] MEDS ORDERED: guaiFENesin 200 MG/10 ML 10 ML UNIT-DOSE CUPS PO PRN (15:18)
[2022-01-16] MEDS ORDERED: ALBUTEROL SO4 HFA INHALER IH PRN (15:19)
[2022-01-16] MEDS: hydrOXYzine PAMOATE 25 MG CAPSULE (FP) PO PRN (21:22)
[2022-01-16] MEDS ORDERED: THIAMINE HCL 100 MG TABLET (FP) PO SCH (22:00)
[2022-01-16] MEDS ORDERED: traZODone HCL 100 MG TABLET (FP) PO SCH (22:00)
[2022-01-16] MEDS ORDERED: MELATONIN 5 MG TABLETS PO SCH (22:00)
[2022-01-17 07:16] VITALS: BP 136/78; PULSE 65; RESP 18; TEMP 97.3
[2022-01-17] MEDS ORDERED: DULoxetine HCL 30 MG CAPSULE.DR PO SCH (10:00)
[2022-01-17] MEDS ORDERED: PRENATAL VITAMINS W/ FOLIC ACID TABLET (FP) PO SCH (10:00)
[2022-01-17] MEDS ORDERED: NICOTINE 7 MG/24 HOURS TOPICAL PATCH TD SCH (10:00)
[2022-01-17] MEDS: hydrOXYzine PAMOATE 25 MG CAPSULE (FP) PO PRN (10:21)
== END 2022-01-17 19:15 | disposition left against medical advice (07) | DRG 894 ==
LOC: YASAS 13:06 → Y5N 13:07
PROVIDERS: ADMIT Allergy & Immunology; ATTEND Psychiatry & Neurology Pain Medicine
PROC: HZ42ZZZ Group Counseling for Substance Abuse Treatment, Cognitive-Behavioral (ICD-10-PCS; principal; 2022-01-16)
DX: F10.20 Alcohol dependence, uncomplicated (principal); F14.20 Cocaine dependence, uncomplicated; F19.282 Other psychoactive substance dependence with psychoactive substance-induced sleep disorder; F17.210 Nicotine dependence, cigarettes, uncomplicated; F19.24 Other psychoactive substance dependence with psychoactive substance-induced mood disorder; F32.A Depression, unspecified; G47.00 Insomnia, unspecified; I10 Essential (primary) hypertension; J44.9 Chronic obstructive pulmonary disease, unspecified

== ENCOUNTER 2023-06-24 10:39 | Inpatient (IN) | payer OTHER ==
[2023-06-24 11:06] VITALS: BMI 22.6
[2023-06-24] MEDS ORDERED: BENZOCAINE/MENTHOL (CHLORASEPTIC ) LOZENGE MM PRN (12:49)
[2023-06-24] MEDS ORDERED: guaiFENesin 600 MG TABLET.ER (FP) PO PRN (12:49)
[2023-06-24] MEDS ORDERED: BENZONATATE 200 MG CAPSULE PO PRN (12:49)
[2023-06-24] MEDS ORDERED: DICYCLOMINE HCL 10 MG CAPSULE PO PRN (12:49)
[2023-06-24] MEDS ORDERED: MAG HYDROX/AL HYDROX/SIMETH 30 ML UNIT-DOSE CUP PO PRN (12:49)
[2023-06-24] MEDS ORDERED: NALOXONE HCL (KLOXXADO) 8 MG SPRAY NS PRN (12:49)
[2023-06-24] MEDS ORDERED: IBUPROFEN 600 MG TABLET (FP) PO PRN (12:49)
[2023-06-24] MEDS ORDERED: ACETAMINOPHEN 325 MG TABLET (FP) PO PRN (12:49)
[2023-06-24] MEDS ORDERED: LOPERAMIDE HCL 2 MG CAPSULE PO PRN (12:49)
[2023-06-24] MEDS ORDERED: ONDANSETRON *ODT* 4 MG TABLET SL PRN (12:49)
[2023-06-24] MEDS ORDERED: POLYETHYLENE GLYCOL (HEALTHYLAX) 3350 17 GM PACKET PO PRN ×2 (12:49→12:55)
[2023-06-24] MEDS ORDERED: MAGNESIUM HYDROX 2400MG/30ML ORAL SUSPENSION 30 ML CUP PO PRN (12:49)
[2023-06-24] MEDS ORDERED: BISMUTH SUBSALICYLATE 524 MG/30 ML PO PRN (12:49)
[2023-06-24] MEDS ORDERED: NALOXONE HCL 0.4 MG/ML VIAL IM PRN (12:49)
[2023-06-24] MEDS ORDERED: IBUPROFEN 400 MG TABLET (FP) PO PRN (12:49)
[2023-06-24] MEDS ORDERED: NICOTINE POLACRILEX 2 MG GUM BUC PRN (12:55)
[2023-06-24] MEDS ORDERED: MELATONIN 5 MG TABLETS PO SCH (22:00)
[2023-06-24] MEDS: hydrOXYzine PAMOATE 25 MG CAPSULE (FP) PO PRN (22:29)
[2023-06-24] MEDS: METHOCARBAMOL 500 MG TABLET PO PRN (22:29)
[2023-06-24] MEDS: THIAMINE HCL 100 MG TABLET (FP) PO SCH (22:29)
[2023-06-25] MEDS: METHOCARBAMOL 500 MG TABLET PO PRN (05:24)
[2023-06-25] MEDS: hydrOXYzine PAMOATE 25 MG CAPSULE (FP) PO PRN (05:24)
[2023-06-25] MEDS ORDERED: chlordiazePOXIDE HCL 25 MG CAPSULE PO PRN (09:10)
[2023-06-25] MEDS ORDERED: ALBUTEROL SO4 HFA INHALER IH PRN (09:15)
[2023-06-25] MEDS: NICOTINE 14 MG/24 HOURS TOPICAL PATCH TD SCH (10:29)
[2023-06-25] MEDS: PRENATAL VITAMINS W/ FOLIC ACID TABLET (FP) PO SCH (10:29)
[2023-06-25 10:52] LABS: HEMATOCRIT 31.6 % (32.4-45.2); HEMOGLOBIN 10.3 GM/dL (10.7-15.3); MCHC 32.6 g/dl (32.0-36.0); MEAN CELL VOLUME 58.8 fl (80-96); MEAN PLT VOLUME 8.4 fl (7.5-11.1); PLATELET COUNT 269 10^3/uL (134-434); RBC 5.37 M/mm3 (3.60-5.2); RDW 16.7 % (11.6-15.6); WHITE BLOOD COUNT 6.7 K/mm3 (4.0-10.0)
[2023-06-25 10:54] LABS: MCH 19.2 pg (25.7-33.7); POTASSIUM 3.8 mmol/L (3.5-5.1)
[2023-06-25 10:57] LABS: CALCIUM 8.2 mg/dL (8.5-10.1)
[2023-06-25 10:58] LABS: ALBUMIN 3.1 g/dl (3.4-5.0); BLOOD UREA NITROGEN 9.7 mg/dL (7-18)
[2023-06-25 11:01] LABS: CREATININE 0.7 mg/dL (0.55-1.3)
[2023-06-25 11:02] LABS: TOT PROT 6.2 g/dl (6.4-8.2)
[2023-06-25 11:03] LABS: BILIRUBIN,TOTAL 0.2 mg/dL (0.2-1)
[2023-06-25] MEDS: DULoxetine HCL 60 MG CAPSULE.DR PO SCH (11:28)
[2023-06-25] MEDS: PATIENT'S OWN MEDICATION (NON-FORMULARY) (Vortioxetine Hydrobromide [Trintellix] 20 MG Tab PO SCH (12:03)
[2023-06-25] MEDS: chlordiazePOXIDE HCL 25 MG CAPSULE PO SCH ×2 (17:50→22:46)
[2023-06-25] MEDS ORDERED: traZODone HCL 50 MG TABLET (FP) PO SCH (22:00)
[2023-06-25] MEDS: traZODone HCL 50 MG TABLET (FP) PO SCH (22:25)
[2023-06-25] MEDS: THIAMINE HCL 100 MG TABLET (FP) PO SCH (22:25)
[2023-06-26] MEDS: chlordiazePOXIDE HCL 25 MG CAPSULE PO SCH ×4 (05:27→22:47)
[2023-06-26] MEDS: NICOTINE 14 MG/24 HOURS TOPICAL PATCH TD SCH (10:05)
[2023-06-26] MEDS: hydrOXYzine PAMOATE 25 MG CAPSULE (FP) PO PRN (10:07)
[2023-06-26] MEDS: PATIENT'S OWN MEDICATION (NON-FORMULARY) (Vortioxetine Hydrobromide [Trintellix] 20 MG Tab PO SCH (10:07)
[2023-06-26] MEDS: PRENATAL VITAMINS W/ FOLIC ACID TABLET (FP) PO SCH (10:08)
[2023-06-26] MEDS: DULoxetine HCL 60 MG CAPSULE.DR PO SCH (10:47)
[2023-06-26] MEDS: traZODone HCL 50 MG TABLET (FP) PO SCH (22:47)
[2023-06-26] MEDS: THIAMINE HCL 100 MG TABLET (FP) PO SCH (22:47)
[2023-06-27] MEDS: chlordiazePOXIDE HCL 10 MG CAPSULE PO SCH ×2 (05:45→10:46)
[2023-06-27] MEDS ORDERED: DULoxetine HCL 30 MG CAPSULE.DR PO SCH (09:48)
[2023-06-27] MEDS: PRENATAL VITAMINS W/ FOLIC ACID TABLET (FP) PO SCH (10:46)
[2023-06-27] MEDS: NICOTINE 14 MG/24 HOURS TOPICAL PATCH TD SCH (10:49)
[2023-06-27] MEDS: PATIENT'S OWN MEDICATION (NON-FORMULARY) (Vortioxetine Hydrobromide [Trintellix] 20 MG Tab PO SCH (10:50)
[2023-06-27 13:06] VITALS: BP 125/83; PULSE 66; RESP 16; TEMP 97.3
[2023-06-28] MEDS ORDERED: chlordiazePOXIDE HCL 10 MG CAPSULE PO SCH (05:00)
[2023-06-29] MEDS ORDERED: chlordiazePOXIDE HCL 10 MG CAPSULE PO ONE (05:00)
== END 2023-06-27 15:44 | disposition left against medical advice (07) | DRG 894 ==
LOC: YASAS 10:39 → Y6N 13:21
PROVIDERS: ADMIT Allergy & Immunology; ATTEND Allergy & Immunology
PROC: HZ2ZZZZ Detoxification Services for Substance Abuse Treatment (ICD-10-PCS; principal; 2023-06-24)
DX: F10.230 Alcohol dependence with withdrawal, uncomplicated (principal); F14.20 Cocaine dependence, uncomplicated; F19.282 Other psychoactive substance dependence with psychoactive substance-induced sleep disorder; F33.1 Major depressive disorder, recurrent, moderate; F17.210 Nicotine dependence, cigarettes, uncomplicated; F19.24 Other psychoactive substance dependence with psychoactive substance-induced mood disorder; I10 Essential (primary) hypertension; J43.9 Emphysema, unspecified; Z20.822 Contact with and (suspected) exposure to COVID-19
CPT/HCPCS: 36415; 80053; 80307; 82962; 85027; 86780; 87635; 87811; Q0162